=== PATIENT | female | born 1975 | race Caucasian/White ===

== ENCOUNTER 2016-11-17 06:26 | Day surgery (SDC) | payer OTHER ==
[~2016-11-17] VITALS: Ht 162.6 cm; Wt 125.0 kg
[~2016-11-17 06:26] MED LIST: AMLO-511 PO; AUD NEB; BACL10TA PO; BUSP10TA23 PO; GABA-531 PO; IPRA4AER IH; LAMO100T56 PO; LEVO25TA9 PO; MELO-273 PO; MOME13HF2 IH; MONT10TA21 PO; SODIUM CHLORIDE 0.9% 1,000 ML IV ONE
[2016-11-17] MEDS ORDERED: SODIUM CHLORIDE 0.9% 0 ML IV ONE (06:41)
[2016-11-17] MEDS ORDERED: ENOX100D4 SQ (07:01)
[2016-11-17] MEDS ORDERED: MIDAZOLAM HCL 2 MG/2 ML VIAL ONE (07:43)
[2016-11-17] MEDS ORDERED: FentaNYL CITRATE-PF 100 MCG/2 ML VIAL ONE (07:43)
[2016-11-17] MEDS ORDERED: MethylPREDNISolone SOD SUCC 125 MG/2 ML VIAL IVP ONE (08:15)
[2016-11-17] MEDS ORDERED: MethylPREDNISolone SOD SUCC 125 MG/2 ML VIAL ONE (08:51)
[2016-11-17] MEDS ORDERED: SODIUM CHLORIDE 0.9% 1,000 ML IV ONE ×2 (09:26→09:28)
[2016-11-17 09:27] LABS: GLUCOSE,POINT OF CARE 76 MG/DL (70-110)
[2016-11-17] MEDS ORDERED: LABETALOL HCL 5 MG/ML 20 ML VIAL IVP ONE (09:31)
[2016-11-17] MEDS ORDERED: IOVERSOL 350 MG/ML 100 ML VIAL ONE (09:37)
[2016-11-17] MEDS ORDERED: SODIUM CHLORIDE 0.9% 100 ML ONE (09:37)
[2016-11-17 10:31] LABS: GLUCOSE,POINT OF CARE 67 MG/DL (70-110)
[2016-11-17] MEDS ORDERED: RINGERS SOLUTION,LACTATED 1,000 ML IV ONE (11:00)
[2016-11-17] MEDS ORDERED: BENZOCAINE 20% 50 MCG/SPRAY 57 GM TP ONE (16:59)
[2016-11-17] MEDS ORDERED: LIDOCAINE HCL 4% 50 ML SOLUTION TP ONE (16:59)
[2016-11-17] MEDS ORDERED: ALBUTEROL SULFATE 2.5 MG/0.5 ML NEB SOLUTION NEB ONE (16:59)
[2016-11-17] MEDS ORDERED: LIDOCAINE HCL 2% 30 ML JELLY TP ONE (16:59)
[2016-11-17] MEDS ORDERED: OXYGEN THERAPY IH SCH (20:00)
[2016-11-17] MEDS ORDERED: PRIM50TA23 PO (21:59)
[2016-11-17] MEDS ORDERED: CLON0.5T PO ×2 (21:59)
[2016-11-17] MEDS ORDERED: LOVA40TA2 PO (21:59)
== END 2016-11-17 10:05 | disposition other institution (70) ==
LOC: SURGERY 06:26
PROVIDERS: ATTEND Internal Medicine Critical Care Medicine
DX: J38.4 Edema of larynx (principal); B37.0 Candidal stomatitis; Z79.899 Other long term (current) drug therapy
CPT/HCPCS: 31623; 31624; 70450; 70496; 71010; 82962; 87015 ×2; 87070; 87101; 87205; 87220; 88108; 88312; 93005; 99291; J2250; J2930; J3010; J3490; J7030; J7050; Q9967; 87147; 87149

== ENCOUNTER 2016-11-17 10:17 | Inpatient (IN) | payer OTHER ==
[~2016-11-17] VITALS: Ht 167.6 cm; Wt 126.0 kg
[~2016-11-17 10:17] MED LIST changes: +ENOX100D4 SQ; -SODIUM CHLORIDE 0.9% 1,000 ML IV ONE
[2016-11-17 11:04] LABS: BASOPHILS # (AUTO) 0.01 K/uL (0.00-0.20); BASOPHILS % (AUTO) 0.1 % (0.0-2.0); EOSINOPHILS # (AUTO) 0.07 K/uL (0.00-0.70); EOSINOPHILS % (AUTO) 0.58 % (1.0-6.0); HEMATOCRIT 39.1 % (36-46); HEMOGLOBIN 13.1 g/dL (12.0-16.0); LYMPHOCYTES # (AUTO) 0.9 K/uL (1.0-4.8); LYMPHOCYTES % (AUTO) 7.8 % (22.0-44.0); MEAN CORPUSCULAR HGB CONC 33.4 G/dL (31.0-37.0); MEAN CORPUSCULAR VOLUME 90 fL (80-100); MONOCYTES # (AUTO) 0.2 K/uL (0.1-1.0); MONOCYTES % (AUTO) 1.5 % (2.0-9.0); NEUTROPHILS # (AUTO) 10.4 K/uL (1.8-7.7); PLATELET COUNT (AUTO) 204 K/uL (150-450); RED BLOOD CELL COUNT(AUTO) 4.35 MIL/uL (4.00-5.20); RED CELL DISTRIBUTION WIDTH 15.5 % (11.5-14.5); WHITE BLOOD COUNT (AUTO) 11.5 K/uL (4.5-11.0)
[2016-11-17 11:10] LABS: RBC MORPHOLOGY COMMENT NORMAL RBC MORPH
[2016-11-17 11:12] LABS: ANION GAP 7 mmol/L (8-16); CARBON DIOXIDE 30 mmol/L (22-29); CHLORIDE 101 mmol/L (98-107); CREATININE 1.19 mg/dL (0.60-1.30); GLOMERULAR FILTR. RATE CALC 50 mL/min (>60); POTASSIUM 3.5 mmol/L (3.5-5.1); SODIUM SERUM 138 mmol/L (136-145); UREA NITROGEN, BLOOD 13 mg/dL (7-18)
[2016-11-17 11:18] LABS: ALANINE AMINOTRANSFERASE 19 U/L (12-78); ALBUMIN 2.9 g/dL (3.4-5.0); ASPARTATE AMINOTRANSFERASE 10 U/L (15-37); BILIRUBIN,TOTAL 0.4 mg/dL (0.1-1.0); CREATINE KINASE, TOTAL 14 U/L (26-192); PROTHROMBIN TIME 10.4 SEC (9.4-11.6); TOTAL PROTEIN, SERUM 6.4 g/dL (6.4-8.2)
[2016-11-17 11:28] LABS: B-TYPE NATRIURETIC PEPTIDE 24 pg/mL (0-100)
[2016-11-17 12:08] LABS: APPEARANCE,URINE CLOUDY (CLEAR); GLUCOSE, URINE (UA) NEGATIVE (NEGATIVE); KETONES,URINE NEGATIVE (NEGATIVE); LEUKOCYTE ESTERASE ,URINE SMALL (NEGATIVE); OCCULT BLOOD,URINE NEGATIVE (NEGATIVE); PROTEIN,URINE NEGATIVE (NEGATIVE)
[2016-11-17 12:10] LABS: ADD UA MICROSCOPIC YES
[2016-11-17 12:23] LABS: RBC,URINE 0-2 /HPF (0-2); SQUAMOUS EPITHELIAL CELL,UR Few /LPF (None Seen)
[2016-11-17] MEDS ORDERED: LamoTRIgine 100 MG TABLET PO ONE (12:30)
[2016-11-17] MEDS ORDERED: GABAPENTIN 100 MG CAPSULE PO ONE (12:30)
[2016-11-17] MEDS ORDERED: ONDANSETRON HCL 4 MG/2 ML VIAL IVP PRN (20:15)
[2016-11-17] MEDS ORDERED: 0.9% SODIUM CHLORIDE 10 ML SYRINGE IVP PRN (20:15)
[2016-11-17] MEDS ORDERED: ACETAMINOPHEN 325 MG TABLET PO PRN (20:15)
[2016-11-17] MEDS ORDERED: MONTELUKAST SODIUM 10 MG TABLET PO SCH (21:00)
[2016-11-17] MEDS: ALBUTEROL SULFATE 2.5 MG/0.5 ML NEB SOLUTION NEB SCH (21:00)
[2016-11-17 21:06] VITALS: BP 120/79
[2016-11-17] MEDS ORDERED: PRIM50TA23 PO (21:59)
[2016-11-17] MEDS ORDERED: CLON0.5T PO ×2 (21:59)
[2016-11-17] MEDS ORDERED: LOVA40TA2 PO (21:59)
[2016-11-17] MEDS ORDERED: ClonazePAM 0.5 MG TABLET PO SCH (22:00)
[2016-11-17] MEDS ORDERED: PRIMIDONE 50 MG TABLET PO SCH (22:00)
[2016-11-17] MEDS: BusPIRone HCL 10 MG TABLET PO SCH (22:32)
[2016-11-17] MEDS: ALBUTEROL SULFATE/IPRATROPIUM 100-20 MCG/SPRAY 4 GM INHALER IH SCH (22:32)
[2016-11-17] MEDS: GABAPENTIN 300 MG CAPSULE PO SCH (22:33)
[2016-11-17] MEDS: ENOXAPARIN SODIUM 100 MG/ML PF SYRINGE SQ SCH (22:33)
[2016-11-17] MEDS: BACLOFEN 10 MG TABLET PO SCH (22:33)
[2016-11-17] MEDS: LamoTRIgine 100 MG TABLET PO SCH (22:33)
[2016-11-18 00:01] VITALS: BP 110/62
[2016-11-18] MEDS ORDERED: ACETAMINOPHEN 325 MG TABLET PO PRN (02:30)
[2016-11-18] MEDS ORDERED: ONDANSETRON HCL 4 MG/2 ML VIAL IVP PRN (02:30)
[2016-11-18] MEDS ORDERED: MAGNESIUM HYDROXIDE SUSPENSION 30 ML UDCUP PO PRN (02:30)
[2016-11-18] MEDS: DOCUSATE SODIUM 100 MG CAPSULE PO SCH ×2 (02:30→08:24)
[2016-11-18] MEDS ORDERED: 0.9% SODIUM CHLORIDE 10 ML SYRINGE IVP PRN (02:30)
[2016-11-18 04:34] VITALS: BP 127/78
[2016-11-18] MEDS ORDERED: LEVOTHYROXINE SODIUM 25 MCG TABLET PO SCH (06:30)
[2016-11-18 07:43] VITALS: BP 122/75
[2016-11-18 07:56] LABS: BASOPHILS # (AUTO) 0.02 K/uL (0.00-0.20); BASOPHILS % (AUTO) 0.2 % (0.0-2.0); EOSINOPHILS # (AUTO) 0.04 K/uL (0.00-0.70); EOSINOPHILS % (AUTO) 0.32 % (1.0-6.0); HEMATOCRIT 37.5 % (36-46); HEMOGLOBIN 12.3 g/dL (12.0-16.0); LYMPHOCYTES # (AUTO) 1.9 K/uL (1.0-4.8); LYMPHOCYTES % (AUTO) 15.3 % (22.0-44.0); MEAN CORPUSCULAR HEMOGLOBIN 29.4 pg (26.0-34.0); MEAN CORPUSCULAR HGB CONC 32.7 G/dL (31.0-37.0); MEAN CORPUSCULAR VOLUME 90 fL (80-100); MONOCYTES # (AUTO) 0.6 K/uL (0.1-1.0); MONOCYTES % (AUTO) 4.9 % (2.0-9.0); NEUTROPHILS # (AUTO) 9.7 K/uL (1.8-7.7); NEUTROPHILS % (AUTO) 79.3 % (40.0-70.0); PLATELET COUNT (AUTO) 250 K/uL (150-450); RED BLOOD CELL COUNT(AUTO) 4.18 MIL/uL (4.00-5.20); RED CELL DISTRIBUTION WIDTH 16.1 % (11.5-14.5); WHITE BLOOD COUNT (AUTO) 12.2 K/uL (4.5-11.0)
[2016-11-18] MEDS: ALBUTEROL SULFATE/IPRATROPIUM 100-20 MCG/SPRAY 4 GM INHALER IH SCH (08:22)
[2016-11-18] MEDS: BusPIRone HCL 10 MG TABLET PO SCH (08:24)
[2016-11-18] MEDS: BACLOFEN 10 MG TABLET PO SCH (08:24)
[2016-11-18] MEDS: GABAPENTIN 300 MG CAPSULE PO SCH (08:24)
[2016-11-18] MEDS: LamoTRIgine 100 MG TABLET PO SCH (08:24)
[2016-11-18] MEDS: ENOXAPARIN SODIUM 100 MG/ML PF SYRINGE SQ SCH (08:25)
[2016-11-18 08:27] LABS: CARBON DIOXIDE 29 mmol/L (22-29); CHLORIDE 105 mmol/L (98-107); POTASSIUM 4.4 mmol/L (3.5-5.1); SODIUM SERUM 140 mmol/L (136-145)
[2016-11-18 08:28] LABS: ANION GAP 6 mmol/L (8-16); CALCIUM, TOTAL 8.6 mg/dL (8.8-10.5); CREATININE 0.98 mg/dL (0.60-1.30); GLOMERULAR FILTR. RATE CALC > 60 mL/min (>60); UREA NITROGEN, BLOOD 10 mg/dL (7-18)
[2016-11-18] MEDS ORDERED: MOMETASONE IH SCH (09:00)
[2016-11-18] MEDS ORDERED: PANTOPRAZOLE SODIUM 40 MG/VIAL IVP SCH (09:00)
[2016-11-18] MEDS ORDERED: MELOXICAM 7.5 MG TABLET PO SCH (09:00)
[2016-11-18] MEDS ORDERED: AmLODIPine BESYLATE 5 MG TABLET PO SCH (09:00)
[2016-11-18] MEDS ORDERED: FORMOTEROL IH SCH (09:00)
[2016-11-18] MEDS ORDERED: 0.9% SODIUM CHLORIDE 5 ML NEB SOLUTION NEB ONE (09:07)
[2016-11-18] MEDS: ALBUTEROL SULFATE 2.5 MG/0.5 ML NEB SOLUTION NEB SCH (09:30)
[2016-11-18] MEDS ORDERED: LORazepam 2 MG/ML VIAL IVP ONE (10:30)
[2016-11-18 11:58] VITALS: BP 119/57
[2016-11-18] MEDS ORDERED: ClonazePAM 0.5 MG TABLET PO SCH (12:00)
[2016-11-18] MEDS ORDERED: LOVASTATIN 20 MG TABLET PO SCH (18:00)
[2016-11-19] MEDS ORDERED: NICOTINE 21 MG/24 HOUR PATCH TD SCH (09:00)
== END 2016-11-18 16:00 | disposition home or self-care (01) | DRG 52 ==
LOC: EMS 10:18 → 5S 17:49
PROVIDERS: ADMIT Hospitalist; ATTEND Hospitalist
DX: G92 Toxic encephalopathy (principal); R55 Syncope and collapse; I10 Essential (primary) hypertension; G40.909 Epilepsy, unspecified, not intractable, without status epilepticus; E03.9 Hypothyroidism, unspecified; J44.9 Chronic obstructive pulmonary disease, unspecified; J45.909 Unspecified asthma, uncomplicated; M79.7 Fibromyalgia; Z86.73 Personal history of transient ischemic attack (TIA), and cerebral infarction without residual deficits; I25.2 Old myocardial infarction; Z87.891 Personal history of nicotine dependence; Z98.890 Other specified postprocedural states; Z88.5 Allergy status to narcotic agent; Z88.0 Allergy status to penicillin; Z79.899 Other long term (current) drug therapy; Z86.718 Personal history of other venous thrombosis and embolism; Z90.710 Acquired absence of both cervix and uterus
CPT/HCPCS: 70551; 87081; 87086; 93005; 94640; 99285; C9113; J1650; J2060

== ENCOUNTER 2021-06-03 06:26 | Day surgery (SDC) | payer OTHER ==
[~2021-06-03] VITALS: Ht 157.5 cm; Wt 117.9 kg
[~2021-06-03 06:26] MED LIST changes: +AMLO-257 PO; -AMLO-511 PO; +CLON0.5T PO; +GABA-1181 PO; -GABA-531 PO; +LOVA40TA2 PO; +MELO-107 PO; -MELO-273 PO; +MONT-35 PO; -MONT10TA21 PO; +PRIM50TA23 PO; +SODIUM CHLORIDE 0.9% 1,000 ML ONE
[2021-06-03] MEDS ORDERED: LIDOCAINE 2% 30 ML JELLY TP ONE (06:27)
[2021-06-03] MEDS ORDERED: ALBUTEROL SULFATE 2.5 MG/0.5 ML NEB SOLUTION NEB ONE (06:27)
[2021-06-03] MEDS ORDERED: BENZOCAINE 20% 50 MCG/SPRAY 57 GM TP ONE (06:27)
[2021-06-03] MEDS ORDERED: SODIUM CHLORIDE 0.9% 1,000 ML IV ONE (06:30)
[2021-06-03 06:49] LABS: COVID AG,FIA SOURCE NASOPHARYNGEAL
[2021-06-03] MEDS ORDERED: MIDAZOLAM HCL 5 MG/ML VIAL ONE (07:30)
[2021-06-03] MEDS ORDERED: FentaNYL CITRATE PF 100 MCG/2 ML VIAL ONE (07:30)
[2021-06-03] MEDS ORDERED: MethylPREDNISolone SOD SUCC 125 MG/2 ML VIAL IVP ONE (09:45)
[2021-06-03] MEDS ORDERED: MethylPREDNISolone SOD SUCC 125 MG/2 ML VIAL ONE (09:45)
[2021-06-03] MEDS ORDERED: OXYGEN THERAPY IH SCH (20:00)
== END 2021-06-03 11:25 | disposition home or self-care (01) ==
LOC: SURGERY 06:26
PROVIDERS: ATTEND Internal Medicine Critical Care Medicine
DX: J38.4 Edema of larynx (principal); B37.0 Candidal stomatitis; F17.210 Nicotine dependence, cigarettes, uncomplicated; F41.9 Anxiety disorder, unspecified; E03.9 Hypothyroidism, unspecified; F32.9 Major depressive disorder, single episode, unspecified; E78.00 Pure hypercholesterolemia, unspecified; I10 Essential (primary) hypertension; J44.9 Chronic obstructive pulmonary disease, unspecified; Z79.899 Other long term (current) drug therapy; Z90.710 Acquired absence of both cervix and uterus; Z98.890 Other specified postprocedural states
CPT/HCPCS: 31623; 31624; 71045; 87070; 87101; 87206; 87220; 87426; 88184; 88185; C9803; J2250; J2930; J3010; J7030; 87015; 87205; 88108; 88312; J7613